=== PATIENT | male | born 1935 | race Asian ===

== ENCOUNTER 2018-04-14 16:41 | Inpatient (IN) | payer MEDICARE, OTHER ==
[2018-04-14 21:31] LABS: ADD MAN DIFF? NO
[2018-04-14 21:33] LABS: BASOPHIL # 0.1 10^3/ul (0.0-0.1); EOSINOPHILS # 0.3 10^3/ul (0.0-0.5); EOSINOPHILS % 4.9 % (0.0-7.0); HEMATOCRIT 37.1 % (42.0-52.0); LYMPHOCYTES # 1.7 10^3/ul (0.8-2.9); LYMPHOCYTES % 29.3 % (15.0-51.0); MEAN CORPUSCULAR HEMOGLOBIN 31.4 pg (29.0-33.0); MEAN CORPUSCULAR VOLUME 89.6 fl (82.0-101.0); MEAN PLATELET VOLUME 9.6 fl (7.4-10.4); MONOCYTE # 0.4 10^3/ul (0.3-0.9); MONOCYTES % 7.3 % (0.0-11.0); NEUTROPHIL # 3.4 10^3/ul (1.6-7.5); NEUTROPHILS % 57.2 % (39.0-77.0); PLATELET COUNT 222 10^3/UL (140-415); RED BLOOD COUNT 4.14 10^6/ul (4.70-6.10); RED CELL DISTRIBUTION WIDTH 13.7 % (11.5-14.5)
[2018-04-14 21:33] LABS: WHITE BLOOD COUNT 5.9 10^3/ul (4.8-10.8)
[2018-04-14 21:50] LABS: ALANINE AMINOTRANSFERASE 37 IU/L (13-69); ALBUMIN 4.2 g/dl (3.3-4.9); ALKALINE PHOSPHATASE 47 IU/L (42-121); ANION GAP 9 (5-13); ASPARTATE AMINO TRANSFERASE 40 IU/L (15-46); BILIRUBIN,INDIRECT 0.4 mg/dl (0-1.1); BILIRUBIN,TOTAL 0.4 mg/dl (0.2-1.3); BLOOD UREA NITROGEN 35 mg/dl (7-20); CALCIUM 9.7 mg/dl (8.4-10.2); CARBON DIOXIDE 28 mmol/L (21-31); CHLORIDE 93 mmol/L (97-110); CREATININE 0.86 mg/dl (0.61-1.24); GLUCOSE 120 mg/dl (70-220); POTASSIUM 4.8 mmol/L (3.5-5.1); SODIUM 130 mmol/L (135-144); TOTAL PROTEIN 7.7 g/dl (6.1-8.1)
[2018-04-14 21:53] LABS: INR 0.96; PROTIME 12.9 Sec (11.9-14.9)
[2018-04-14 21:54] LABS: PARTIAL THROMBOPLASTIN TIME 28.7 Sec (23.0-35.0)
[2018-04-14] MEDS: SOD CHLORIDE 0.9% 500 ML IV (21:56)
[2018-04-14 22:01] LABS: TROPONIN-I < 0.012 ng/ml (0.000-0.120)
[2018-04-15] MEDS ORDERED: morphine 4 MG/ML VIAL IV (01:00)
[2018-04-15] MEDS ORDERED: ACETAMINOPHEN 325 MG TAB PO (01:00)
[2018-04-15] MEDS: METOPROLOL (XL) 25 MG TAB PO ×2 (01:25→21:37)
[2018-04-15] MEDS: DEXTROSE 5%-0.45% NACL 1,000 ML IV (01:25)
[2018-04-15] MEDS: PANTOPRAZOLE 40 MG INJ IV ×2 (05:06→18:10)
[2018-04-15 07:10] LABS: ADD MAN DIFF? NO
[2018-04-15 07:20] LABS: WHITE BLOOD COUNT 4.3 10^3/ul (4.8-10.8)
[2018-04-15 07:20] LABS: BASOPHILS % 0.7 % (0.0-2.0); EOSINOPHILS # 0.3 10^3/ul (0.0-0.5); EOSINOPHILS % 6.2 % (0.0-7.0); HEMATOCRIT 38.3 % (42.0-52.0); HEMOGLOBIN 13.5 g/dl (14.0-18.0); LYMPHOCYTES # 1.2 10^3/ul (0.8-2.9); LYMPHOCYTES % 27.7 % (15.0-51.0); MEAN CORPUSCULAR HEMOGLOBIN 31.5 pg (29.0-33.0); MEAN CORPUSCULAR HGB CONC 35.2 g/dl (32.0-37.0); MEAN CORPUSCULAR VOLUME 89.3 fl (82.0-101.0); MEAN PLATELET VOLUME 9.6 fl (7.4-10.4); MONOCYTE # 0.5 10^3/ul (0.3-0.9); MONOCYTES % 11.5 % (0.0-11.0); NEUTROPHIL # 2.3 10^3/ul (1.6-7.5); NEUTROPHILS % 53.7 % (39.0-77.0); PLATELET COUNT 187 10^3/UL (140-415); RED BLOOD COUNT 4.29 10^6/ul (4.70-6.10); RED CELL DISTRIBUTION WIDTH 13.6 % (11.5-14.5)
[2018-04-15 07:48] LABS: ANION GAP 11 (5-13); BLOOD UREA NITROGEN 22 mg/dl (7-20); CALCIUM 9.3 mg/dl (8.4-10.2); CARBON DIOXIDE 29 mmol/L (21-31); CHLORIDE 96 mmol/L (97-110); CREATININE 0.65 mg/dl (0.61-1.24); GLUCOSE 103 mg/dl (70-220); POTASSIUM 4.1 mmol/L (3.5-5.1); SODIUM 136 mmol/L (135-144)
[2018-04-15] MEDS ORDERED: METOPROLOL (XL) 25 MG TAB PO (09:00)
[2018-04-15] MEDS: BISACODYL (EC) 5 MG TAB PO (10:56)
[2018-04-15] MEDS: MAGNESIUM CITRATE 300 ML BTL PO (18:09)
[2018-04-15] MEDS: POLYETHYLENE GLYCOL 3350 119 GM POWDER PO (18:14)
[2018-04-15 18:45] LABS: TROPONIN-I < 0.012 ng/ml (0.000-0.120)
[2018-04-15] MEDS: RANOLAZINE (SR) 500 MG TAB PO (20:46)
[2018-04-16] MEDS: DEXTROSE 5%-0.45% NACL 1,000 ML IV ×2 (01:00→23:15)
[2018-04-16 01:59] LABS: TROPONIN-I < 0.012 ng/ml (0.000-0.120)
[2018-04-16 06:03] LABS: ADD MAN DIFF? NO
[2018-04-16 06:20] LABS: BASOPHIL # 0.1 10^3/ul (0.0-0.1); BASOPHILS % 1.3 % (0.0-2.0); EOSINOPHILS # 0.3 10^3/ul (0.0-0.5); EOSINOPHILS % 7.3 % (0.0-7.0); HEMATOCRIT 39.2 % (42.0-52.0); HEMOGLOBIN 13.9 g/dl (14.0-18.0); LYMPHOCYTES # 1.3 10^3/ul (0.8-2.9); LYMPHOCYTES % 28.4 % (15.0-51.0); MEAN CORPUSCULAR HEMOGLOBIN 31.6 pg (29.0-33.0); MEAN CORPUSCULAR HGB CONC 35.5 g/dl (32.0-37.0); MEAN CORPUSCULAR VOLUME 89.1 fl (82.0-101.0); MEAN PLATELET VOLUME 9.6 fl (7.4-10.4); MONOCYTE # 0.5 10^3/ul (0.3-0.9); MONOCYTES % 10.6 % (0.0-11.0); NEUTROPHIL # 2.4 10^3/ul (1.6-7.5); NEUTROPHILS % 52.2 % (39.0-77.0); PLATELET COUNT 199 10^3/UL (140-415); RED CELL DISTRIBUTION WIDTH 13.2 % (11.5-14.5)
[2018-04-16 06:20] LABS: WHITE BLOOD COUNT 4.6 10^3/ul (4.8-10.8)
[2018-04-16] MEDS: PANTOPRAZOLE 40 MG INJ IV ×2 (06:24→17:18)
[2018-04-16] MEDS: POLYETHYLENE GLYCOL 3350 119 GM POWDER PO (06:24)
[2018-04-16] MEDS: BISACODYL (EC) 5 MG TAB PO (06:24)
[2018-04-16 06:49] LABS: ANION GAP 7 (5-13); BLOOD UREA NITROGEN 12 mg/dl (7-20); CALCIUM 9.2 mg/dl (8.4-10.2); CARBON DIOXIDE 30 mmol/L (21-31); CHLORIDE 95 mmol/L (97-110); CREATININE 0.77 mg/dl (0.61-1.24); GLUCOSE 100 mg/dl (70-220); POTASSIUM 4.5 mmol/L (3.5-5.1); SODIUM 132 mmol/L (135-144)
[2018-04-16 07:14] LABS: MAGNESIUM 1.9 mg/dl (1.7-2.5)
[2018-04-16 07:14] LABS: PHOSPHORUS 3.8 mg/dl (2.5-4.9)
[2018-04-16] MEDS: RANOLAZINE (SR) 500 MG TAB PO ×2 (08:35→20:29)
[2018-04-16] MEDS: LOSARTAN 50 MG TAB PO (08:35)
[2018-04-16] MEDS ORDERED: NON-FORMULARY/PATIENT OWN MED (Olmesartan Medoxomil (Benicar) 20 MG) PO (09:00)
[2018-04-16] MEDS: PROPOFOL 40 ML (13:10)
[2018-04-16] MEDS ORDERED: FENTAnyl 50 MCG/ML VIAL IV (14:30)
[2018-04-16] MEDS: METOPROLOL (XL) 25 MG TAB PO (20:30)
[2018-04-17] MEDS: PANTOPRAZOLE 40 MG INJ IV (05:15)
[2018-04-17 06:09] LABS: ADD MAN DIFF? NO
[2018-04-17 06:18] LABS: BASOPHIL # 0.1 10^3/ul (0.0-0.1); BASOPHILS % 1.1 % (0.0-2.0); EOSINOPHILS # 0.3 10^3/ul (0.0-0.5); EOSINOPHILS % 6.7 % (0.0-7.0); HEMATOCRIT 39.1 % (42.0-52.0); HEMOGLOBIN 13.9 g/dl (14.0-18.0); LYMPHOCYTES # 1.2 10^3/ul (0.8-2.9); LYMPHOCYTES % 26.1 % (15.0-51.0); MEAN CORPUSCULAR HEMOGLOBIN 31.6 pg (29.0-33.0); MEAN CORPUSCULAR HGB CONC 35.5 g/dl (32.0-37.0); MEAN CORPUSCULAR VOLUME 88.9 fl (82.0-101.0); MEAN PLATELET VOLUME 9.3 fl (7.4-10.4); MONOCYTE # 0.5 10^3/ul (0.3-0.9); MONOCYTES % 10.8 % (0.0-11.0); NEUTROPHIL # 2.6 10^3/ul (1.6-7.5); NEUTROPHILS % 55.1 % (39.0-77.0); PLATELET COUNT 207 10^3/UL (140-415); RED CELL DISTRIBUTION WIDTH 12.8 % (11.5-14.5)
[2018-04-17 06:18] LABS: WHITE BLOOD COUNT 4.6 10^3/ul (4.8-10.8)
[2018-04-17 06:44] LABS: ANION GAP 11 (5-13); BLOOD UREA NITROGEN 14 mg/dl (7-20); CALCIUM 9.3 mg/dl (8.4-10.2); CARBON DIOXIDE 27 mmol/L (21-31); CHLORIDE 97 mmol/L (97-110); CREATININE 0.68 mg/dl (0.61-1.24); GLUCOSE 106 mg/dl (70-220); SODIUM 135 mmol/L (135-144)
[2018-04-17 06:57] LABS: CHOLESTEROL 125 mg/dl (100-200)
[2018-04-17 06:57] LABS: CHOL/HDL RATIO 3.1 RATIO; HDL CHOLESTEROL 40 mg/dl (31-75); LDL CHOLESTEROL,CALCULATED 71 mg/dl; TRIGLYCERIDES 69 mg/dl (0-149)
[2018-04-17] MEDS: DIATR MEGLU/DIATRIZOATE SODIUM 120 ML BTL (09:52)
[2018-04-17] MEDS: LOSARTAN 50 MG TAB PO (12:48)
[2018-04-17] MEDS: RANOLAZINE (SR) 500 MG TAB PO (12:48)
[2018-04-17] MEDS: TICAGRELOR 90 MG TABLET PO (15:29)
[2018-04-17] MEDS: ASPIRIN 81 MG TAB PO (15:30)
[2018-04-17] MEDS: PANTOPRAZOLE (EC) 40 MG TAB PO (17:58)
== END 2018-04-17 18:45 | disposition home or self-care (01) | DRG 394 ==
LOC: E/R 16:41 → PP2 22:21
PROC: 0DB68ZX Excision of Stomach, Via Natural or Artificial Opening Endoscopic, Diagnostic (ICD-10-PCS; principal; 2018-04-16 13:00)
PROC: 0DJD8ZZ Inspection of Lower Intestinal Tract, Via Natural or Artificial Opening Endoscopic (ICD-10-PCS; 2018-04-16 13:00)
DX: K64.8 Other hemorrhoids (principal); K92.2 Gastrointestinal hemorrhage, unspecified; E87.1 Hypo-osmolality and hyponatremia; K29.00 Acute gastritis without bleeding; E78.5 Hyperlipidemia, unspecified; I37.1 Nonrheumatic pulmonary valve insufficiency; I07.1 Rheumatic tricuspid insufficiency; I25.2 Old myocardial infarction; I25.10 Atherosclerotic heart disease of native coronary artery without angina pectoris; K21.9 Gastro-esophageal reflux disease without esophagitis; I10 Essential (primary) hypertension; I45.10 Unspecified right bundle-branch block; D64.9 Anemia, unspecified; R00.1 Bradycardia, unspecified; Z86.010 Personal history of colon polyps; Z95.1 Presence of aortocoronary bypass graft; Z79.82 Long term (current) use of aspirin; Z95.5 Presence of coronary angioplasty implant and graft; Z86.73 Personal history of transient ischemic attack (TIA), and cerebral infarction without residual deficits
CPT/HCPCS: 36415; 71045; 74176; 74250; 80048; 80053; 80061; 83735; 84100; 84484; 85025; 85610; 85730; 86850; 86900; 86901; 88305; 88312; 93005; 93306; 99285-25